=== PATIENT | female | born 1975 | race Caucasian/White ===

== ENCOUNTER 2020-09-07 10:58 | Emergency (ER) | payer BC ==
--- NOTE | 2020-09-07 12:06 | EDM.PDOC ---
ED HPI GENERAL MEDICAL PROBLEM - General Chief Complaint: General Stated Complaint: HIGH POTASSIUM LEVELS Time Seen by Provider: 09/07/20 11:04 Source of Information: Reports: Patient, RN Notes Reviewed History Limitations: Reports: No Limitations - History of Present Illness INITIAL COMMENTS - FREE TEXT/NARRATIVE: Patient is a 45-year-old female presenting to the emergency department at the request of her primary care provider for concerns with regard to an elevated potassium level on blood draw that was done yesterday. She was seen by her primary care provider in the clinic yesterday with regards to a ringworm infection. The provider marcial lab work to assess her liver function in order to prescribe her griseofulvin. She received a phone call today stating that she s hould come to the emergency department as her potassium was elevated at 6.3. He has no history of hyperkalemia. Kidney function is normal. She is not taking a potassium supplement or a potassium sparing diuretic. She is actually on hydrochlorothiazide and also uses albuterol inhalers for asthma, therefore these should serve to actually lower her potassium. She denies any muscle weakness, however states she has been sick with bronchitis and has been having body aches. She was Covid tested and this was found to be negative. She has occasional palpitations, but states this is normal for her and she denies any increase in frequency of these. Generalized Pain Score (Numeric/FACES): 3 - Related Data Allergies Allergy/AdvReac Type Severity Reaction Status Date / Time amoxicillin [From Augmentin] Allergy Stomach Verified 09/07/20 11:11 Upset clavulanic acid Allergy Stomach Verified 09/07/20 11:11 [From Augmentin] Upset Home Meds: Home Meds Ascorbic Acid [Vitamin C] 500 mg PO DAILY 09/07/20 [History] Budesonide/Formoterol Fumarate [Budesonide-Formoterol 160-4.5] 1 puff PO DAILY 09/07/20 [History] Cholecalciferol (Vitamin D3) [Vitamin D3] 5,000 unit PO DAILY 09/07/20 [History] Ciclopirox [Loprox 0.77% Crm] 1 applic TOP BID 09/07/20 [History] Docosahexaenoic Acid [DHA] 1 cap PO DAILY 09/07/20 [History] Escitalopram [Lexapro] 20 mg PO DAILY 09/07/20 [History] Griseofulvin, Microsize [Griseofulvin] 500 mg PO DAILY 09/07/20 [History] Metoprolol Tartrate 25 mg PO DAILY 09/07/20 [History] Montelukast [Singulair] 10 mg PO DAILY 09/07/20 [History] Multivitamin [Multivitamins] 1 cap PO DAILY 09/07/20 [History] Mv,Prateek,Iron,Mn/Folic Acid/Chol [Hair, Skin and Nails Capsule] 1 cap PO DAILY 09/07/20 [History] Vitamin B Complex 1 cap PO DAILY 09/07/20 [History] hydroCHLOROthiazide [Hydrochlorothiazide] 12.5 mg PO DAILY 09/07/20 [History] metFORMIN [Glucophage] 500 mg PO DAILY 09/07/20 [History] norethindrone-e.estradioL-iron [Yury Fe 1-20 Tablet] 1 tab PO DAILY 09/07/20 [History] traZODone HCl [Trazodone HCl] 50 mg PO BEDTIME 09/07/20 [History] Past Medical History HEENT History: Reports: Other (See Below) Other HEENT History: rhinoplasty Cardiovascular History: Reports: Hypertension Respiratory History: Reports: Other (See Below) Other Respiratory History: airway disease Gastrointestinal History: Reports: Other (See Below) Other Gastrointestinal History: constipation Psychiatric History: Reports: Anxiety, Depression Endocrine/Metabolic History: Reports: Obesity/BMI 30+ Social & Family History - Family History Family Medical History: No Pertinent Family History - Tobacco Use Tobacco Use Status *Q: Never Tobacco User Second Hand Smoke Exposure: No - Caffeine Use Caffeine Use: Reports: Soda - Recreational Drug Use Recreational Drug Use: No ED ROS GENERAL - Review of Systems Review Of Systems: See Below Constitutional: Denies: Fever, Chills, Weakness HEENT: Reports: No Symptoms Respiratory: Reports: Cough Cardiovascular: Reports: No Symptoms Endocrine: Reports: No Symptoms GI/Abdominal: Reports: No Symptoms : Reports: No Symptoms Musculoskeletal: Reports: Other (generalized body aches) Skin: Reports: No Symptoms Neurological: Reports: No Symptoms Psychiatric: Reports: No Symptoms Hematologic/Lymphatic: Reports: No Symptoms Immunologic: Reports: No Symptoms ED EXAM, GENERAL - Physical Exam Exam: See Below Exam Limited By: No Limitations General Appearance: Alert, WD/WN, No Apparent Distress Respiratory/Chest: No Respiratory Distress, Lungs Clear, Normal Breath Sounds, No Accessory Muscle Use, Chest Non-Tender Cardiovascular: Normal Peripheral Pulses, Regular Rate, Rhythm, No Edema, No Gallop, No JVD, No Murmur, No Rub GI/Abdominal: Normal Bowel Sounds, Soft, Non-Tender, No Organomegaly, No Distention, No Abnormal Bruit, No Mass Extremities: Normal Inspection, Normal Range of Motion, Non-Tender, Normal Capillary Refill, No Pedal Edema Neurological: Alert, Oriented, CN II-XII Intact, Normal Cognition, Normal Gait, Normal Reflexes, No Motor/Sensory Deficits Psychiatric: Normal Affect, Normal Mood Skin Exam: Warm, Dry, Intact, Normal Color, No Rash #1 Interpretation EKG Date: 09/07/20 Time: 11:42 Rhythm: NSR Rate (Beats/Min): 71 [place]: Normal P-Wave: Present QRS: Normal ST-T: Normal QT: Normal Course - Vital Signs Last Recorded V/S: Last Vital Signs Temp 96.2 F L 09/07/20 11:09 Pulse 83 09/07/20 11:09 Resp 18 09/07/20 11:09 BP 153/84 H 09/07/20 11:09 Pulse Ox 96 09/07/20 11:09 - Orders/Labs/Meds Labs: Laboratory Tests 09/07/20 Range/Units 11:32 Sodium 140 (136-145) mEq/L Potassium 3.6 (3.5-5.1) mEq/L Chloride 103 (98-107) mEq/L Carbon Dioxide 26 (21-32) mEq/L Anion Gap 14.6 (5-15) BUN 15 (7-18) mg/dL Creatinine 0.8 (0.55-1.02) mg/dL Est Cr Clr Drug Dosing 89.58 mL/min Estimated GFR (MDRD) > 60 (>60) mL/min BUN/Creatinine Ratio 18.8 H (14-18) Glucose 113 H (74-106) mg/dL Calcium 8.9 (8.5-10.1) mg/dL Magnesium 2.1 (1.8-2.4) mg/dl Total Bilirubin 0.4 (0.2-1.0) mg/dL AST 12 L (15-37) U/L ALT 19 (14-59) U/L Alkaline Phosphatase 86 (46-116) U/L Total Protein 7.2 (6.4-8.2) g/dl Albumin 3.4 (3.4-5.0) g/dl Globulin 3.8 gm/dL Albumin/Globulin Ratio 0.9 L (1-2) - Re-Assessments/Exams Free Text/Narrative Re-Assessment/Exam: Patient is a 45-year-old female presenting to the emergency department at the request of her primary care provider for an elevated potassium on a blood draw done yesterday. Potassium results were 6.3. Patient has no history of chronic kidney disease, does not take a potassium supplement, and is not on a potassium sparing diuretic. Of note she is actually taking hydrochlorothiazide and albuterol both of which should lower her potassium. I suspect that her specimen may have been hemolyzed, therefore we will recheck labs here today. I ordered CMP, magnesium, and an EKG. 09/07/20 12:32 EKG was negative for any T wave abnormalities that would correlate with hyperkalemia. Potassium today was 3.6. All other lab values are normal. Her specimen yesterday was likely hemolyzed which caused potassium to show is elevated. We will discharge her home. Called and updated the patient's primary care provider's nurse, Nahomy. She will update the provider. Discharge instructions as documented. Departure - Departure Time of Disposition: 12:34 Disposition: Home, Self-Care 01 Condition: Good Clinical Impression: Abnormal laboratory test result - Discharge Information *PRESCRIPTION DRUG MONITORING PROGRAM REVIEWED*: No *COPY OF PRESCRIPTION DRUG MONITORING REPORT IN PATIENT SARITA: No Referrals: Montserrat Patton NP [Primary Care Provider] - Forms: ED Department Discharge Additional Instructions: You were seen in the emergency department today for evaluation with regards to an elevated potassium reading on a blood draw that was done yesterday. Work-up in the ER included blood work and an EKG of your heart. Results of today's blood work showed that your potassium is normal at 3.6. EKG showed no signs of hyperkalemia as well. As we discussed, your sample yesterday was likely hemolyzed which can cause the potassium readings to be abnormally high. Recommend that you continue your medications as prescribed by your provider. Follow-up with primary care provider as needed. Return to ER as needed. Sepsis Event Note (ED) - Evaluation Sepsis Screening Result: No Definite Risk - Focused Exam Vital Signs: Vital Signs Temp Pulse Resp BP Pulse Ox 09/07/20 11:09 96.2 F L 83 18 153/84 H 96
== END 2020-09-07 13:13 | disposition home or self-care (01) ==
LOC: JD.ED 10:58
DX: R79.89 Other specified abnormal findings of blood chemistry (principal); I10 Essential (primary) hypertension; F41.9 Anxiety disorder, unspecified; F32.9 Major depressive disorder, single episode, unspecified; E66.9 Obesity, unspecified; Z68.38 Body mass index [BMI] 38.0-38.9, adult; Z88.1 Allergy status to other antibiotic agents; Z79.899 Other long term (current) drug therapy
CPT/HCPCS: 36415; 80053; 83735; 93005; 99283; 99285-25

== ENCOUNTER 2021-01-11 06:51 | Day surgery (SDC) | payer BC ==
[~2021-01-11 06:51] MED LIST: Albuterol 0.083% 2.5 MG/3 ML Neb Soln NEB SCH; Lactated Ringers 1,000 ML IV SCH; Lidocaine 1%/Sod Bicarbonate in NS 8.4% 1 ML Syringe IDERM PRN; Sodium Chloride 0.9% 10 ML Syringe FLUSH PRN
[2021-01-11] MEDS ORDERED: Sodium Chloride 0.9% 50 ML SDV ONE (07:09)
[2021-01-11] MEDS ORDERED: Lidocaine 1% with EPINEPHrine 1:100,000 10 ML MDV ONE (07:09)
[2021-01-11] MEDS ORDERED: Bupivacaine 0.5% 30 ML SDV ONE (07:09)
[2021-01-11] MEDS ORDERED: Levalbuterol HCl 1.25 MG/3 ML Neb NEB SCH (07:29)
--- NOTE | 2021-01-11 07:40 | PCM.PREANE ---
Preanesthetic Assessment - Procedure Proposed Procedure: Laparoscopic assisted Vaginal Hysterectomy - Anesthesia/Transfusion/Family Hx Anesthesia History: Prior Anesthesia Reaction Type of Anesthesia Reaction: Excessive Somnolence Family History of Anesthesia Reaction: No - Review of Systems General: No Symptoms Pulmonary: Other (Asthma, rescue inhaler xopenex. Controlled. Sleep Apnea with CPAP use. ) Cardiovascular: Palpitations (Occasional) Gastrointestinal: No Symptoms Other: Reports: None (Obesity BMI 40), Diabetes (Pre Diabetes, metformin use to control. Blood glucose 101 mg/dl this am. ), Anxiety - Physical Assessment NPO Status Date: 01/10/21 NPO Status Time: 21:00 Weight: 116.573 kg ASA Class: 3 Mental Status: Alert & Oriented x3 Airway Class: Mallampati = 2 Dentition: Reports: Normal Dentition Thyro-Mental Finger Breadths: 2 Mouth Opening Finger Breadths: 3 ROM/Head Extension: Full Lungs: Clear to Auscultation, Normal Respiratory Effort Cardiovascular: Regular Rate, Regular Rhythm - Lab Values: Laboratory Last Values POC Glucose 101 mg/dL (70-105) 01/11/21 07:25 Urine HCG, Qual Negative (NEGATIVE) 01/11/21 07:00 - Allergies Allergies/Adverse Reactions: Allergies Allergy/AdvReac Type Severity Reaction Status Date / Time amoxicillin [From Augmentin] AdvReac Stomach Verified 01/09/21 10:56 Upset clavulanic acid AdvReac Stomach Verified 01/09/21 10:56 [From Augmentin] Upset - Anesthesia Plan Pre-Op Medication Ordered: Anxiolytic, Other (Xopenex nebulizer (prefers to avoid albuterol as it causes her to get the "shakes". ) Beta Aviva: Metoprolol Med Last Dose Date: 01/11/21 Med Last Dose Time: 04:30 - Acknowledgements Anesthesia Type Planned: General Anesthesia Pt an Appropriate Candidate for the Planned Anesthesia: Yes Alternatives and Risks of Anesthesia Discussed w Pt/Guardian: Yes Pt/Guardian Understands and Agrees with Anesthesia Plan: Yes PreAnesthesia Questionnaire HEENT History: Reports: Other (See Below) Other HEENT History: rhinoplasty Cardiovascular History: Reports: Hypertension Respiratory History: Reports: Asthma, Sleep Apnea, Other (See Below) Other Respiratory History: airway disease Gastrointestinal History: Reports: Other (See Below) Other Gastrointestinal History: constipation Genitourinary History: Reports: None FIBER TECHNOLOGIST History: Reports: None Neurological History: Reports: None Psychiatric History: Reports: Anxiety, Depression, Other (See Below) Other Psychiatric History: sleep disturbances, fatigue Endocrine/Metabolic History: Reports: Obesity/BMI 30+ Hematologic History: Reports: None Immunologic History: Reports: None Oncologic (Cancer) History: Reports: None Dermatologic History: Reports: None - Infectious Disease History Infectious Disease History: Reports: None - Past Surgical History Head Surgeries/Procedures: Reports: None HEENT Surgical History: Reports: Adenoidectomy, LASIK, Other (See Below) Other HEENT Surgeries/Procedures: turbinate reduction, septoplasty, sinus surgery Cardiovascular Surgical History: Reports: None Respiratory Surgical History: Reports: None GI Surgical History: Reports: None Female Surgical History: Reports: None Male Surgical History: Reports: None Endocrine Surgical History: Reports: None Neurological Surgical History: Reports: None Musculoskeletal Surgical History: Reports: None Oncologic Surgical History: Reports: None Dermatological Surgical History: Reports: None - SUBSTANCE USE Tobacco Use Status *Q: Never Tobacco User Recreational Drug Use History: No - HOME MEDS Home Medications: Home Meds Ascorbic Acid [Vitamin C] 500 mg PO DAILY 09/07/20 [History] Budesonide/Formoterol Fumarate [Budesonide-Formoterol 160-4.5] 2 puff PO BID 09/07/20 [History] Cholecalciferol (Vitamin D3) [Vitamin D3] 5,000 unit PO DAILY 09/07/20 [History] Metoprolol Tartrate 25 mg PO DAILY 09/07/20 [History] Montelukast [Singulair] 10 mg PO DAILY 09/07/20 [History] Multivitamin [Multivitamins] 1 cap PO DAILY 09/07/20 [History] Vitamin B Complex 1 cap PO DAILY 09/07/20 [History] hydroCHLOROthiazide [Hydrochlorothiazide] 12.5 mg PO DAILY 09/07/20 [History] metFORMIN [Glucophage] 1,000 mg PO DAILY 09/07/20 [History] traZODone HCl [Trazodone HCl] 50 mg PO BEDTIME 09/07/20 [History] Albuterol [Ventolin HFA] 1 puff INH Q4H PRN 01/10/21 [History] Fluticasone Propionate [Flovent HFA] 2 puff INH BEDTIME 01/10/21 [History] Magnesium 200 mg PO DAILY 01/10/21 [History] Olopatadine [Patanol 0.1% Ophth Soln] 1 drop EYEBOTH BID PRN 01/10/21 [History] Zinc 50 mg PO DAILY 01/10/21 [History] - CURRENT (IN HOUSE) MEDS Current Meds: Current Medications Lactated Ringer's (Ringers, Lactated) 1,000 mls @ 125 mls/hr IV ASDIRECTED CARLOS Stop: 01/11/21 23:00 Levalbuterol HCl (Levalbuterol Hcl 1.25 Mg/3 Ml Neb) 1.25 mg NEB ONETIME CARLOS Stop: 01/11/21 10:00 Lidocaine/Sodium Bicarbonate (Lidocaine 1%/Sod Bicarbonate In Ns 8.4% 1 Ml Syringe) 0.25 ml IDERM ONETIME PRN PRN Reason: Prior to IV Start Stop: 01/11/21 18:00 Sodium Chloride (Sodium Chloride 0.9% 10 Ml Syringe) 10 ml FLUSH ASDIRECTED PRN PRN Reason: Keep Vein Open Stop: 01/11/21 18:00 Discontinued Medications Albuterol (Albuterol 0.083% 2.5 Mg/3 Ml Neb Soln) 2.5 mg NEB ONETIME CARLOS Stop: 01/11/21 16:00 Bupivacaine HCl (Bupivacaine 0.5% 30 Ml Sdv) Confirm Administered Dose 30 ml .ROUTE .STK-MED ONE Stop: 01/11/21 07:10 Lidocaine/Epinephrine (Lidocaine 1% With Epinephrine 1:100,000 10 Ml Mdv) Confirm Administered Dose 10 ml .ROUTE .STK-MED ONE Stop: 01/11/21 07:10 Sodium Chloride (Sodium Chloride 0.9% 50 Ml Sdv) Confirm Administered Dose 50 ml .ROUTE .STK-MED ONE Stop: 01/11/21 07:10
[2021-01-11] MEDS ORDERED: Ondansetron 4 MG/2 ML SDV ONE (07:50)
[2021-01-11] MEDS ORDERED: Rocuronium 50 MG/5 ML Vial ONE (07:50)
[2021-01-11] MEDS ORDERED: Lactated Ringers 1,000 ML ONE (07:50)
[2021-01-11] MEDS ORDERED: ceFAZolin 1 GM Vial ONE ×3 (07:50→08:40)
[2021-01-11] MEDS ORDERED: Lidocaine 1% 4 ML ONE (07:50)
[2021-01-11] MEDS ORDERED: Dexamethasone 4 MG/ML 5 ML MDV ONE (07:51)
[2021-01-11] MEDS ORDERED: fentaNYL 250 MCG/5 ML SDV ONE (07:51)
[2021-01-11] MEDS ORDERED: Midazolam 1 MG/ML 2 ML SDV ONE (07:51)
[2021-01-11] MEDS ORDERED: Propofol 200 MG/20 ML SDV ONE ×2 (07:51→08:34)
[2021-01-11] MEDS ORDERED: Ketamine 500 mg/10 ML MDV ONE (08:34)
[2021-01-11] MEDS ORDERED: diphenhydrAMINE 50 MG/ML SDV ONE (08:38)
[2021-01-11] MEDS ORDERED: HYDROmorphone 0.5 MG/0.5 ML Syringe ONE (08:49)
[2021-01-11] MEDS ORDERED: fentaNYL 100 MCG/2 ML SDV ONE (08:50)
[2021-01-11] MEDS ORDERED: ePHEDrine 50 MG/ML SDV ONE (09:02)
[2021-01-11] MEDS ORDERED: fentaNYL 100 MCG/2 ML SDV IVPUSH PRN (09:07)
[2021-01-11] MEDS ORDERED: HYDROmorphone 0.5 MG/0.5 ML Syringe IVPUSH PRN (09:07)
[2021-01-11] MEDS ORDERED: Ondansetron 4 MG/2 ML SDV IVPUSH PRN (09:07)
--- NOTE | 2021-01-11 09:25 | PCM.OPNOTE ---
- General Post-Op/Procedure Note Date of Surgery/Procedure: 01/11/21 Operative Procedure(s): Total vaginal hysterectomy with bilateral salpingectomy Findings: Uterus is small. Adequate descensus was noted. Ovaries were small but functional in appearance. Fallopian tubes were short but functional in appearance. Pre Op Diagnosis: Abnormal uterine bleeding Post-Op Diagnosis: Same Anesthesia Technique: General ET Tube Other Anesthesia Type: Lidocaine quarter percent with [id number] cc local Primary Surgeon: Brijesh Velázquez Secondary Surgeon: Rashaun Moore Anesthesia Provider: Sydni Gilmore Mica Miner Blasting: Saige Funez Reason Mica Miner Blasting Was Necessary: Retraction, assistance, patient safety, quality of care. Pathology: Uterus, bilateral fallopian tubes in 1 specimen container. Fluid Replacement, Intraop: 1,500 Output, Urine Amount: 25 EBL in mLs: 250 Drain/Tube Comments:: Rubber catheter used to drain the bladder at the beginning of the case. Complications: None Condition: Good Free Text/Narrative:: Intake & Output 01/10/21 01/11/21 01/11/21 22:59 06:59 14:59 Output Total 30 Balance -30 Surgery duration: 38 minutes Procedure: The patient was placed in supine position on the operating table. Patient received 3 g of Ancef preoperatively for infection prophylaxis. She had DVT prophylaxis SCDs. General endotracheal anesthesia was accomplished. After positioning, and adequate prep and drape, the procedure was then performed. Sterile speculum was placed in the vagina and cervix was visualized. Cervix was injected with lidocaine quarter percent with epinephrine-20 mL used. A full circumference incision was made in the cervical epithelium. The bladder was pushed well back off cervix. Posterior cul-de-sac was then entered sharply without problems. Left uterosacral was crossclamped with a Enseal vessel closure system. The left uterosacral and then the right uterosacral ligament pedicles were developed using the Enseal system. The anterior cul-de-sac was then entered without problems and the uterine vasculature, cardinal ligament and broad ligament then developed using Enseal vessel closure system. The uterus was inverted at this time and upper broad ligament fallopian tube pedicles were crossclamped with Izabela clamps. Specimen was totally removed. Both these pedicles were then secured with a Izabela stitch of #1 Vicryl. Left and right fallopian tube was normal in appearance.. Using Enseal vessel closure system each of the tubes was then removed and sent with the specimen. The patient was found to be hemostatically intact at this time. Vaginal cuff was sutured for hemostatic reasons with a running locked suture of 0 Monocryl from the 2 o'clock position to the 10 o'clock position posteriorly. Vaginal cuff was then closed from right to left side with a running locked suture of 0 Monocryl. Patient was returned to supine position and awakened from general endotracheal anesthesia. She tolerated the procedure and left the operating room in satisfactory condition.
--- NOTE | 2021-01-11 09:44 | PCM.POSTAN ---
POST ANESTHESIA ASSESSMENT - MENTAL STATUS Mental Status: Other (Drowsy, opens eyes to name. ) - VITAL SIGNS Vital Signs: Last Vital Signs Temp 36.8 C 01/11/21 09:29 Pulse 78 01/11/21 09:29 Resp 18 01/11/21 09:29 BP 110/54 L 01/11/21 09:29 Pulse Ox 96 01/11/21 09:29 - RESPIRATORY Respiratory Status: Respiratory Rate WNL, Airway Patent, O2 Saturation Stable, Supplemental Oxygen - CARDIOVASCULAR CV Status: Pulse Rate WNL, Blood Pressure Stable - GASTROINTESTINAL GI Status: No Symptoms - PAIN Pain Score: 0 - POST OP HYDRATION Hydration Status: Adequate & Stable
[2021-01-11] MEDS ORDERED: Acetaminophen/oxyCODONE 325-5 MG Tab PO SCH ×2 (10:15)
--- NOTE | 2021-01-11 11:44 | PCM48HPAN ---
Post Anesthesia Note - EVALUATION WITHIN 48HRS OF ANESTHETIC Vital Signs in Normal Range: Yes Patient Participated in Evaluation: Yes Respiratory Function Stable: Yes Airway Patent: Yes Cardiovascular Function Stable: Yes Hydration Status Stable: Yes Pain Control Satisfactory: Yes Nausea and Vomiting Control Satisfactory: Yes Mental Status Recovered: Yes Vital Signs: Last Vital Signs Temp 36.4 C 01/11/21 10:13 Pulse 67 01/11/21 10:58 Resp 19 01/11/21 10:58 BP 115/70 01/11/21 10:58 Pulse Ox 94 L 01/11/21 11:13
== END 2021-01-11 13:16 | disposition home or self-care (01) ==
LOC: JD.SDS 06:51
PROVIDERS: ATTEND Obstetrics & Gynecology
DX: N84.0 Polyp of corpus uteri (principal); N72 Inflammatory disease of cervix uteri; E66.9 Obesity, unspecified; Z79.899 Other long term (current) drug therapy; Z98.890 Other specified postprocedural states; Z01.812 Encounter for preprocedural laboratory examination; Z20.822 Contact with and (suspected) exposure to COVID-19; Z88.1 Allergy status to other antibiotic agents; Z88.8 Allergy status to other drugs, medicaments and biological substances; Z68.39 Body mass index [BMI] 39.0-39.9, adult
CPT/HCPCS: 36415; 58262; 81025; 82962; 86850; 86900; 86901; 94640; A9270; J0690; J1100; J1170; J1200; J2250; J2405; J2704; J2710; J3010; J3490; J7120; J7612; 00944